=== PATIENT | female | born 1960 | race African-American/Black ===

== ENCOUNTER 2019-03-22 14:14 | Emergency (ER) | payer SELFPAY ==
[2019-03-22] MEDS ORDERED: Famotidine 20 MG TAB ONE (14:26)
[2019-03-22] MEDS ORDERED: predniSONE 20 MG TAB ONE (14:26)
[2019-03-22] MEDS ORDERED: hydrOXYzine 25 MG TAB ONE (14:26)
== END 2019-03-22 14:33 | disposition home or self-care (01) ==
LOC: BURERS 14:14
DX: T63.461A Toxic effect of venom of wasps, accidental (unintentional), initial encounter (principal)
CPT/HCPCS: 99282; J7512